=== PATIENT | male | born 1935 | race Caucasian/White ===

== ENCOUNTER → 2023-09-06 07:53 | Outpatient (REF) | payer MEDICARE, OTHER, SELFPAY ==
[2023-09-06 08:49] LABS: Urine Albumin Negative (Neg - Trace); Urine Bilirubin Negative (Negative); Urine Character Clear (Clear); Urine Color Yellow; Urine Glucose Negative (Negative); Urine Ketone Negative (Negative); Urine Leukocyte Trace (Negative); Urine Nitrite Negative (Negative); Urine Occult Blood Negative (Negative); Urine Urobilinogen Negative (Neg - 1+)
[2023-09-06 09:04] LABS: % Basophils 0.6 % (0-2); % Immature Granulocytes 0.4 % (0-0.5); % Lymphocytes 22.6 % (20.5-51.1); % Monocytes 11.9 % (1.7-9.3); % Neutrophils 61.5 % (42.2-75.2); Absolute Eosinophils 0.1 10^3/uL (0-0.7); Absolute Lymphocytes 1.1 10^3/uL (1.2-3.4); Absolute Monocytes 0.6 10^3/uL (0.1-0.6); Absolute Neutrophils 2.9 10^3/uL (1.4-6.5); Hematocrit 36.9 % (39.0-52.0); Hemoglobin 12.6 g/dL (13.0-18.0); Mean Corp Hgb Conc. 34.1 g/dL (33.0-37.0); Mean Corpuscular Hgb 32.6 pg (27.0-31.0); Mean Corpuscular Volume 95.3 fL (80.0-94.0); Mean Platelet Volume 10.6 fL (7.4-10.4); Nucleated Red Blood Cells % 0 % (-); Platelet Count 131 10^3/uL (130-400); Red Blood Cell Count 3.87 10^6/uL (4.70-6.10); Red Cell Dist. Width 14.5 % (11.5-14.5); Urine Mucus Few; Urine Red Blood Cell 0-2 /HPF (0-2); White Blood Cell Count 4.6 10^3/uL (4.8-10.8)
[2023-09-06 09:05] LABS: Urine Bacteria Few (Negative); Urine White Cell 0-2 /HPF (0-5)
[2023-09-06 09:23] LABS: NT-proBNP 2190 pg/ml
[2023-09-06 09:29] LABS: ALT (SGPT) 24 U/L (0-50); AST (SGOT) 30 U/L (17-59); Albumin 3.7 g/dl (3.5-5.0); Alkaline Phosphatase 84 U/L (38-126); Blood Urea Nitrogen 22 mg/dl (9-20); Calcium 9.1 mg/dl (8.4-10.2); Carbon Dioxide 22 mmol/L (22-30); Chloride 107 mmol/L (98-107); Glucose 101 mg/dl (70-99); HDL Cholesterol 51 mg/dl; LDL Cholesterol, Calculated 64 mg/dl; Sodium 138 mmol/L (135-145); Total Bilirubin 0.6 mg/dl (0.2-1.3); Total Cholesterol 150 mg/dl (50-199); Total Protein 6.3 g/dl (6.3-8.2); Triglyceride 175 mg/dl (10-149); Very Low Density Lipoprotein 35 mg/dl (0-30); eGFR > 60.00
[2023-09-06 09:34] LABS: Potassium 4.1 mmol/L (3.5-5.1)
[2023-09-06 10:01] LABS: PSA, Total - Diagnostic 0.17 ng/ml (0.0-4.0)
== END ==
LOC: REG 07:53
PROVIDERS: ATTENDING PHYSICIAN Specialist; FAMILY PHYSICIAN Physician Assistant
DX: I48.21 Permanent atrial fibrillation (principal); C61 Malignant neoplasm of prostate; I42.8 Other cardiomyopathies; E78.5 Hyperlipidemia, unspecified; I50.32 Chronic diastolic (congestive) heart failure; R60.0 Localized edema; E66.01 Morbid (severe) obesity due to excess calories
CPT/HCPCS: 36415; 80053; 80061; 81003; 81015; 83880; 84153; 85025